=== PATIENT | female | born 1935 | race Caucasian/White ===

== ENCOUNTER 2017-03-22 14:19 | Emergency (ER) | payer OTHER ==
[~2017-03-22] VITALS: Ht 165.1 cm; Wt 77.2 kg
[~2017-03-22 14:19] MED LIST: AMARYL4 MG PO; AMIODARONE HCL200 MG PO; CLONIDINE HCL0.1 MG PO; Cipro PO; ELIQUIS2.5 MG PO; GABAPENTIN300 MG PO; GLUCOPHAGE1000 MG PO; Glucophage PO; LANTUS 3 M100 UNITS1 SC; LOPRESSOR25 MG PO; MAGNESIUM400 M1 PO; NITROSTAT0.4 MG SL; Neurontin PO; PEPCID20 MG PO; PERCOCET 7.51 TABLET PO; PRAVACHOL40 MG PO; Pravachol PO; ZITHROMAX Z-PA250 MG PO
[2017-03-22] MEDS ORDERED: ROBITUSSIN AC,T10 ML PO (16:02)
[2017-03-22] MEDS ORDERED: MEDROL DOSEPAK4 MG PO (16:02)
[2017-03-22 16:39] VITALS: BP 129/67
== END 2017-03-22 16:15 | disposition home or self-care (01) ==
LOC: EME 14:19
DX: J06.9 Acute upper respiratory infection, unspecified (principal); I10 Essential (primary) hypertension; E78.5 Hyperlipidemia, unspecified; E11.9 Type 2 diabetes mellitus without complications; Z79.4 Long term (current) use of insulin
CPT/HCPCS: 99281; 99284; J1100

== ENCOUNTER 2017-03-30 11:44 | Emergency (ER) | payer OTHER ==
[~2017-03-30] VITALS: Ht 165.1 cm; Wt 76.2 kg
[~2017-03-30 11:44] MED LIST changes: +MEDROL DOSEPAK4 MG PO; +ROBITUSSIN AC,T10 ML PO
[2017-03-30 14:53] LABS: EOSINOPHIL (%) 0.9 % (0-5); EOSINOPHIL COUNT 0.1 K/uL (0-0.3); HEMATOCRIT 43.7 % (36.0-46.0); IMMATURE GRANULOCYTE (%) 1.6 % (0.0-0.7); IMMATURE GRANULOCYTE COUNT 0.2 K/uL; INSTRUMENT ABS NEUTROPHIL CT 8.1 K/uL; MCH 30.3 PG (29.0-34.0); MCHC 31.8 G/DL (30.0-36.0); MCV 95.2 FL (83-99); MEAN PLAT.VOLUME 10.5 uM^3 (9.5-12.4); MONOCYTE (%) 6.7 % (3-12); MONOCYTE COUNT 0.8 K/uL (0-0.8); NEUTROPHIL (%) 66.1 % (45-76); NEUTROPHIL COUNT 8.1 K/uL (1.8-6.4); PLATELET COUNT 224 K/uL (156-360); RBC DIS.WIDTH-CV 12.7 % (11.8-14.6); RBC DIS.WIDTH-SD 44.6 % (39-53); RED BLOOD COUNT 4.59 M/uL (3.80-5.20); WHITE BLOOD COUNT 12.2 K/uL (4.1-10.2)
[2017-03-30 15:01] LABS: CHLORIDE 106 mEq/L (99-109); POTASSIUM 4.3 mEq/L (3.7-5.4); SODIUM 138 mEq/L (136-147)
[2017-03-30 15:03] LABS: GLUCOSE 134 mg/dL (70-99)
[2017-03-30 15:04] LABS: ANION GAP 8 MEQ/L (2-14)
[2017-03-30 15:07] LABS: GFR ESTIMATE (CALCULATED) 23 mL/min/
[2017-03-30 15:08] LABS: UREA NITROGEN (BUN) 56 mg/dL (9-23)
[2017-03-30 15:13] LABS: TROP-I INTERPRETATION NEGATIVE; TROPONIN-I < 0.01 ng/mL (0.0-0.30)
[2017-03-30 16:11] LABS: ADD MIUA? YES; BILIRUBIN NEGATIVE; BLOOD SMALL; COLOR YELLOW ((YELLOW)); GLUCOSE (STRIP) 50; KETONES NEGATIVE; LEUKOCYTES LARGE; NITRITE POSITIVE; PROTEIN (STRIP) 30; UROBILINOGEN 0.2 MG/DL (0.2-1.0)
[2017-03-30 16:34] LABS: BACTERIA 3+ /HPF; CASTS NONE SEEN /LPF; CRYSTALS NONE SEEN; EPITHELIAL CELLS 1+ /HPF; MUCUS NONE SEEN /LPF; UCUL ADDED? YES; WHITE BLOOD CELLS TNTC /HPF (0-5)
[2017-03-30] MEDS ORDERED: BACTRIM,SEPT1 TABLET PO (16:54)
[2017-03-30 17:28] VITALS: BP 107/64
== END 2017-03-30 17:29 | disposition home or self-care (01) ==
LOC: EME → EDBD 11:44 → EME 11:44
PROVIDERS: Emergency Medicine
DX: N30.00 Acute cystitis without hematuria (principal); F43.20 Adjustment disorder, unspecified; I12.9 Hypertensive chronic kidney disease with stage 1 through stage 4 chronic kidney disease, or unspecified chronic kidney disease; N18.9 Chronic kidney disease, unspecified; E78.5 Hyperlipidemia, unspecified; R56.9 Unspecified convulsions; Z79.4 Long term (current) use of insulin
CPT/HCPCS: 70450; 71010; 80048; 81003; 84439; 84443; 84484; 85025; 87077; 87086; 87186; 90832; 93005; 99281; 99285; J0696; J7050

== ENCOUNTER 2017-08-16 11:46 | Inpatient (IN) | payer OTHER ==
[~2017-08-16] VITALS: Ht 162.6 cm; Wt 80.6 kg
[~2017-08-16 11:46] MED LIST changes: +BACTRIM,SEPT1 TABLET PO
[2017-08-16 12:25] LABS: HEMATOCRIT 38.2 % (36.0-46.0); MCH 31.1 PG (29.0-34.0); MCHC 33.2 G/DL (30.0-36.0); MCV 93.6 FL (83-99); MEAN PLAT.VOLUME 10.8 uM^3 (9.5-12.4); PLATELET COUNT 226 K/uL (156-360); RBC DIS.WIDTH-CV 12.8 % (11.8-14.6); RBC DIS.WIDTH-SD 43.8 % (39-53); RED BLOOD COUNT 4.08 M/uL (3.80-5.20)
[2017-08-16 12:34] LABS: CHLORIDE 106 mEq/L (99-109); POTASSIUM 3.9 mEq/L (3.7-5.4); SODIUM 142 mEq/L (136-147)
[2017-08-16 12:37] LABS: GLUCOSE 130 mg/dL (70-99)
[2017-08-16 12:38] LABS: ANION GAP 13 MEQ/L (2-14)
[2017-08-16 12:39] LABS: TOTAL BILIRUBIN 0.4 mg/dL (0.0-1.0)
[2017-08-16 12:40] LABS: ALKALINE PHOSPHATASE 41 IU/L (3-129); GFR ESTIMATE (CALCULATED) 25 mL/min/
[2017-08-16 12:41] LABS: UREA NITROGEN (BUN) 35 mg/dL (9-23)
[2017-08-16 12:47] LABS: TROP-I INTERPRETATION NEGATIVE; TROPONIN-I < 0.01 ng/mL (0.0-0.30)
[2017-08-16] MEDS ORDERED: AMIODARONE HCL200 MG PO (15:10)
[2017-08-16] MEDS ORDERED: LANTUS 3 M100 UNITS1 SC (15:13)
[2017-08-16] MEDS ORDERED: AMARYL4 MG PO (15:14)
[2017-08-16] MEDS ORDERED: LOSARTAN POTAS100 MG PO (15:14)
[2017-08-16] MEDS ORDERED: TRULICITY0.75 MG/0. SC (15:15)
[2017-08-16] MEDS ORDERED: BENZONATATE100 MG PO (15:15)
[2017-08-16] MEDS ORDERED: PREDNISONE20 MG PO (15:16)
[2017-08-16] MEDS ORDERED: CALCITRIOL0.25 MCG PO (15:17)
[2017-08-16] MEDS ORDERED: LEVOTHYROXINE50 MCG PO (15:17)
[2017-08-16] MEDS ORDERED: ATARAX,VISTARIL25 MG PO (15:17)
[2017-08-16] MEDS ORDERED: SILVER SULFADIA50 GM TP (15:18)
[2017-08-16] MEDS ORDERED: CEFUROXIME500 MG PO (15:18)
[2017-08-16] MEDS ORDERED: VITAMIN D-32000 UNI2 PO (15:20)
[2017-08-16 18:24] VITALS: BP 199/91
[2017-08-16 19:18] LABS: TROP-I INTERPRETATION NEGATIVE; TROPONIN-I < 0.01 ng/mL (0.0-0.30)
[2017-08-16 19:30] VITALS: BP 179/80
[2017-08-16 21:39] LABS: POINT-OF-CARE METER ID UU14162513
[2017-08-16 23:20] VITALS: BP 187/74
[2017-08-17] VITALS (8 sets, daily range): BP systolic 138–194; BP diastolic 67–94
[2017-08-17 00:53] LABS: TROP-I INTERPRETATION NEGATIVE; TROPONIN-I 0.01 ng/mL (0.0-0.30)
[2017-08-17 08:13] LABS: POINT-OF-CARE METER ID UU14162513
[2017-08-17 12:04] LABS: POINT-OF-CARE METER ID UU13113831
[2017-08-17 17:26] LABS: POINT-OF-CARE METER ID UU13113831
[2017-08-17 21:22] LABS: POINT-OF-CARE METER ID UU13113831
[2017-08-18 00:30] VITALS: BP 192/81
[2017-08-18 08:34] LABS: POINT-OF-CARE METER ID UU14162513
[2017-08-18 11:33] VITALS: BP 191/80
[2017-08-18 12:30] LABS: POINT-OF-CARE METER ID UU14162513
[2017-08-18 15:54] VITALS: BP 143/63
[2017-08-18 18:06] LABS: POINT-OF-CARE METER ID UU14162513
[2017-08-18 19:30] VITALS: BP 174/72
[2017-08-18 21:30] LABS: POINT-OF-CARE METER ID UU13113700
[2017-08-18 23:42] VITALS: BP 110/60
[2017-08-19 04:26] VITALS: BP 166/73
[2017-08-19 06:52] VITALS: BP 128/64
[2017-08-19 08:25] LABS: POINT-OF-CARE METER ID UU13113700
[2017-08-19 09:52] LABS: HEMATOCRIT 37.5 % (36.0-46.0); MCH 30.3 PG (29.0-34.0); MCHC 31.5 G/DL (30.0-36.0); MCV 96.2 FL (83-99); MEAN PLAT.VOLUME 10.5 uM^3 (9.5-12.4); PLATELET COUNT 177 K/uL (156-360); RBC DIS.WIDTH-CV 13.1 % (11.8-14.6); RBC DIS.WIDTH-SD 46.4 % (39-53); WHITE BLOOD COUNT 8.8 K/uL (4.1-10.2)
[2017-08-19 10:29] LABS: ANION GAP 9 MEQ/L (2-14); CHLORIDE 109 MEQ/L (99-109); GFR ESTIMATE (CALCULATED) 29 mL/min/; GLUCOSE 162 mg/dL (70-99); POTASSIUM 4.4 MEQ/L (3.7-5.4); SAMPLE HEMOLYSIS CHECK 0; SAMPLE ICTERIC CHECK 0; SAMPLE LIPEMIA CHECK 0; SODIUM 141 MEQ/L (136-147); UREA NITROGEN (BUN) 29 mg/dL (9-23)
[2017-08-19 10:33] VITALS: BP 147/63
[2017-08-19] MEDS ORDERED: AZITHROMYCIN500 M1 PO (13:41)
[2017-08-19 13:44] LABS: POINT-OF-CARE METER ID UU14162513
[2017-08-19] MEDS ORDERED: PROTONIX40 MG PO (13:59)
== END 2017-08-19 15:53 | disposition home health service (06) | DRG 312 ==
LOC: EME 11:46 → 5WEST 13:25 → EDOF 13:25 → ENRESERV 13:41 → 5WEST 18:09
PROVIDERS: Internal Medicine; Nurse Practitioner Adult Health; Physician Assistant Medical
DX: I95.1 Orthostatic hypotension (principal); I13.0 Hypertensive heart and chronic kidney disease with heart failure and stage 1 through stage 4 chronic kidney disease, or unspecified chronic kidney disease; I50.9 Heart failure, unspecified; E11.22 Type 2 diabetes mellitus with diabetic chronic kidney disease; N18.3 Chronic kidney disease, stage 3 (moderate); E78.5 Hyperlipidemia, unspecified; I25.10 Atherosclerotic heart disease of native coronary artery without angina pectoris; I48.91 Unspecified atrial fibrillation; F32.9 Major depressive disorder, single episode, unspecified; Z86.73 Personal history of transient ischemic attack (TIA), and cerebral infarction without residual deficits; Z79.4 Long term (current) use of insulin
CPT/HCPCS: 70450; 71010; 74176; 80048; 80053; 82948; 84484; 85027; 92610 GN; 93005; 93306; 93880; 97530 GO; 97530 GP; 99281; 99285; G0378; G8978 GP CK; G8979 GP CI; G8987 GO CM; G8988 CI; J0360; J1815; J2405; J7030

== ENCOUNTER 2017-10-31 14:46 | Emergency (ER) | payer OTHER ==
[~2017-10-31] VITALS: Ht 160 cm; Wt 72.0 kg
[~2017-10-31 14:46] MED LIST changes: +ATARAX,VISTARIL25 MG PO; +AZITHROMYCIN500 M1 PO; +BENZONATATE100 MG PO; +CALCITRIOL0.25 MCG PO; +CEFUROXIME500 MG PO; +LEVOTHYROXINE50 MCG PO; +LOSARTAN POTAS100 MG PO; +PREDNISONE20 MG PO; +PROTONIX40 MG PO; +SILVER SULFADIA50 GM TP; +TRULICITY0.75 MG/0. SC; +VITAMIN D-32000 UNI2 PO
[2017-10-31 15:42] LABS: HEMATOCRIT 36.8 % (36.0-46.0); HEMOGLOBIN 11.9 G/DL (11.9-15.5); MCH 31.5 PG (29.0-34.0); MCHC 32.3 G/DL (30.0-36.0); MCV 97.4 FL (83-99); PLATELET COUNT 159 K/uL (156-360); RBC DIS.WIDTH-SD 46.6 % (39-53); RED BLOOD COUNT 3.78 M/uL (3.80-5.20); WHITE BLOOD COUNT 6.2 K/uL (4.1-10.2)
[2017-10-31 15:57] VITALS: BP 175/68
[2017-10-31 16:05] LABS: ALBUMIN 3.7 G/DL (3.2-4.8); CHLORIDE 109 MEQ/L (99-109); POTASSIUM 4.2 MEQ/L (3.7-5.4); SODIUM 139 MEQ/L (136-147); TOTAL BILIRUBIN 0.5 MG/DL (0.0-1.0)
[2017-10-31 16:22] LABS: ALKALINE PHOSPHATASE 33 IU/L (3-129); ALT (GPT) 14 IU/L (3-49); AST (GOT) 30 IU/L (2-34); CREATININE 1.9 MG/DL (0.6-1.3); GFR ESTIMATE (CALCULATED) 27 mL/min/; GLUCOSE 67 mg/dL (70-99); LIPASE < 3.0 U/L (1.0-51.0); TOTAL PROTEIN 6.5 G/DL (6.4-8.3); UREA NITROGEN (BUN) 24 mg/dL (9-23)
[2017-10-31 18:56] LABS: APPEARANCE CLEAR ((CLEAR)); BILIRUBIN NEGATIVE; BLOOD NEGATIVE; COLOR YELLOW ((YELLOW)); GLUCOSE (STRIP) 50; KETONES NEGATIVE; LEUKOCYTES NEGATIVE; NITRITE POSITIVE; PROTEIN (STRIP) 30; SPECIFIC GRAVITY 1.019 (1.000-1.030); UROBILINOGEN 0.2 MG/DL (0.2-1.0)
[2017-10-31 19:01] LABS: BACTERIA RARE /HPF; EPITHELIAL CELLS RARE /HPF; MUCUS TRACE /LPF; RED BLOOD CELLS 0-5 /HPF (0-5); UCUL ADDED? NO; WHITE BLOOD CELLS 0-5 /HPF (0-5)
[2017-10-31] MEDS ORDERED: KEFLEX500 MG PO (20:15)
== END 2017-10-31 20:54 | disposition home or self-care (01) ==
LOC: EME 14:46
PROVIDERS: Physician Assistant
DX: N39.0 Urinary tract infection, site not specified (principal); S20.211A Contusion of right front wall of thorax, initial encounter; S40.011A Contusion of right shoulder, initial encounter; S70.01XA Contusion of right hip, initial encounter; W01.198A Fall on same level from slipping, tripping and stumbling with subsequent striking against other object, initial encounter; R10.9 Unspecified abdominal pain; R07.9 Chest pain, unspecified; I50.9 Heart failure, unspecified; I11.0 Hypertensive heart disease with heart failure; F32.9 Major depressive disorder, single episode, unspecified; E78.5 Hyperlipidemia, unspecified; E11.9 Type 2 diabetes mellitus without complications; R56.9 Unspecified convulsions; Z79.4 Long term (current) use of insulin; Z79.891 Long term (current) use of opiate analgesic; Z79.84 Long term (current) use of oral hypoglycemic drugs
CPT/HCPCS: 70450; 71045; 73030; 73502; 74176; 80053; 81003; 83690; 85027; 93005; 99281; 99285; J7040

== ENCOUNTER 2017-11-02 12:31 | Inpatient (IN) | payer OTHER ==
[~2017-11-02] VITALS: Ht 162.6 cm; Wt 76.7 kg
[~2017-11-02 12:31] MED LIST changes: +KEFLEX500 MG PO
[2017-11-02 13:38] LABS: BASOPHIL (%) 0.3 % (0-1); EOSINOPHIL (%) 0 % (0-5); HEMATOCRIT 41.2 % (36.0-46.0); HEMOGLOBIN 13.4 G/DL (11.9-15.5); IMMATURE GRANULOCYTE (%) 0.2 % (0.0-0.7); LYMPHOCYTE (%) 16.5 % (15-42); LYMPHOCYTE COUNT 1.4 K/uL (1.0-2.8); MCH 31.3 PG (29.0-34.0); MCHC 32.5 G/DL (30.0-36.0); MCV 96.3 FL (83-99); MONOCYTE (%) 9.2 % (3-12); MONOCYTE COUNT 0.8 K/uL (0-0.8); NEUTROPHIL (%) 73.8 % (45-76); NEUTROPHIL COUNT 6.4 K/uL (1.8-6.4); PLATELET COUNT 170 K/uL (156-360); RBC DIS.WIDTH-CV 13.1 % (11.8-14.6); RBC DIS.WIDTH-SD 46.7 % (39-53); RED BLOOD COUNT 4.28 M/uL (3.80-5.20); WHITE BLOOD COUNT 8.7 K/uL (4.1-10.2)
[2017-11-02 13:47] LABS: CHLORIDE 109 mEq/L (99-109); POTASSIUM 4.3 mEq/L (3.7-5.4); SODIUM 142 mEq/L (136-147)
[2017-11-02 13:48] LABS: GLUCOSE 61 mg/dL (70-99)
[2017-11-02 13:52] LABS: GFR ESTIMATE (CALCULATED) 25 mL/min/
[2017-11-02 13:53] LABS: UREA NITROGEN (BUN) 21 mg/dL (9-23)
[2017-11-02 13:58] LABS: TROP-I INTERPRETATION NEGATIVE; TROPONIN-I 0.02 ng/mL (0.0-0.30)
[2017-11-02 14:26] LABS: INTER. NORMALIZED RATIO 1.1
[2017-11-02] MEDS ORDERED: GLIMEPIRIDE4 MG PO (17:25)
[2017-11-02] MEDS ORDERED: PRAVASTATIN SOD40 MG PO (17:26)
[2017-11-02] MEDS ORDERED: ENDOCET 5-3251 EACH PO (17:27)
[2017-11-02] MEDS ORDERED: LEVEMIR FL100 UNIT/1 SC (17:28)
[2017-11-02] MEDS ORDERED: PENTOXIFYLLINE400 MG PO (17:28)
[2017-11-02 20:21] VITALS: BP 160/70
[2017-11-02 23:48] VITALS: BP 180/83
[2017-11-03] VITALS (7 sets, daily range): BP systolic 125–180; BP diastolic 60–117
[2017-11-03 06:07] LABS: BASOPHIL (%) 0.2 % (0-1); EOSINOPHIL (%) 0 % (0-5); HEMATOCRIT 35.6 % (36.0-46.0); HEMOGLOBIN 11.4 G/DL (11.9-15.5); IMMATURE GRANULOCYTE (%) 0.3 % (0.0-0.7); LYMPHOCYTE (%) 8.9 % (15-42); LYMPHOCYTE COUNT 0.6 K/uL (1.0-2.8); MCH 31.1 PG (29.0-34.0); MONOCYTE (%) 1.6 % (3-12); MONOCYTE COUNT 0.1 K/uL (0-0.8); NEUTROPHIL COUNT 5.6 K/uL (1.8-6.4); PLATELET COUNT 149 K/uL (156-360); RBC DIS.WIDTH-CV 13.1 % (11.8-14.6); RBC DIS.WIDTH-SD 46.7 % (39-53); RED BLOOD COUNT 3.67 M/uL (3.80-5.20); WHITE BLOOD COUNT 6.3 K/uL (4.1-10.2)
[2017-11-03 06:37] LABS: CHLORIDE 101 MEQ/L (99-109); CREATININE 1.8 MG/DL (0.6-1.3); GFR ESTIMATE (CALCULATED) 29 mL/min/; POTASSIUM 5.1 MEQ/L (3.7-5.4); UREA NITROGEN (BUN) 24 mg/dL (9-23)
[2017-11-03 06:38] LABS: GLUCOSE 326 mg/dL (70-99); SODIUM 134 MEQ/L (136-147)
[2017-11-04] VITALS (7 sets, daily range): BP systolic 135–160; BP diastolic 66–92
[2017-11-05] VITALS (7 sets, daily range): BP systolic 136–152; BP diastolic 60–72
[2017-11-05 06:45] LABS: HEMATOCRIT 35.2 % (36.0-46.0); HEMOGLOBIN 11.7 G/DL (11.9-15.5); MCH 31.5 PG (29.0-34.0); MCHC 33.2 G/DL (30.0-36.0); MCV 94.9 FL (83-99); RBC DIS.WIDTH-CV 13.2 % (11.8-14.6); RBC DIS.WIDTH-SD 45.6 % (39-53); RED BLOOD COUNT 3.71 M/uL (3.80-5.20); WHITE BLOOD COUNT 11.7 K/uL (4.1-10.2)
[2017-11-05 06:57] LABS: PLATELET COUNT 196 K/uL (156-360)
[2017-11-05 07:33] LABS: CHLORIDE 102 MEQ/L (99-109); CREATININE 2.4 MG/DL (0.6-1.3); GFR ESTIMATE (CALCULATED) 21 mL/min/; GLUCOSE 182 mg/dL (70-99); POTASSIUM 4.5 MEQ/L (3.7-5.4); SODIUM 139 MEQ/L (136-147); UREA NITROGEN (BUN) 51 mg/dL (9-23)
[2017-11-06] VITALS: BP 142/69
[2017-11-06 04:04] VITALS: BP 142/71
[2017-11-06 06:36] LABS: HEMATOCRIT 35.3 % (36.0-46.0); HEMOGLOBIN 11.5 G/DL (11.9-15.5); MCH 31.1 PG (29.0-34.0); MCHC 32.6 G/DL (30.0-36.0); MCV 95.4 FL (83-99); PLATELET COUNT 191 K/uL (156-360); RBC DIS.WIDTH-SD 45.1 % (39-53); WHITE BLOOD COUNT 9.3 K/uL (4.1-10.2)
[2017-11-06 07:29] VITALS: BP 125/59
[2017-11-06 11:08] LABS: HEMOGLOBIN A1c (GLYCOHEMOGLOB) 8.6 % (Below 5.7)
[2017-11-06 16:10] VITALS: BP 130/62
[2017-11-06 20:04] VITALS: BP 130/69
[2017-11-07] VITALS: BP 126/68
[2017-11-07 04:00] VITALS: BP 156/76
[2017-11-07 06:25] LABS: CHLORIDE 105 MEQ/L (99-109); CREATININE 2.2 MG/DL (0.6-1.3); GFR ESTIMATE (CALCULATED) 23 mL/min/; GLUCOSE 147 mg/dL (70-99); POTASSIUM 4.1 MEQ/L (3.7-5.4); SODIUM 136 MEQ/L (136-147); UREA NITROGEN (BUN) 47 mg/dL (9-23)
[2017-11-07 07:49] VITALS: BP 127/72
[2017-11-07 11:24] VITALS: BP 135/62
[2017-11-07 15:21] VITALS: BP 121/60
[2017-11-07 23:56] VITALS: BP 174/74
[2017-11-08 07:36] VITALS: BP 147/67
[2017-11-08 16:16] VITALS: BP 140/64
[2017-11-08 23:24] VITALS: BP 132/63
[2017-11-09 07:05] LABS: HEMATOCRIT 34.5 % (36.0-46.0); HEMOGLOBIN 11.1 G/DL (11.9-15.5); MCH 30.5 PG (29.0-34.0); MCHC 32.2 G/DL (30.0-36.0); MCV 94.8 FL (83-99); PLATELET COUNT 233 K/uL (156-360); RBC DIS.WIDTH-SD 45.1 % (39-53); RED BLOOD COUNT 3.64 M/uL (3.80-5.20); WHITE BLOOD COUNT 13.1 K/uL (4.1-10.2)
[2017-11-09 07:37] LABS: CHLORIDE 104 MEQ/L (99-109); CREATININE 2.3 MG/DL (0.6-1.3); GFR ESTIMATE (CALCULATED) 22 mL/min/; POTASSIUM 4.6 MEQ/L (3.7-5.4); SODIUM 134 MEQ/L (136-147); UREA NITROGEN (BUN) 58 mg/dL (9-23)
[2017-11-09 07:46] VITALS: BP 122/65
[2017-11-09 07:49] LABS: GLUCOSE 232 mg/dL (70-99)
[2017-11-09 12:56] VITALS: BP 128/65
[2017-11-09 16:14] VITALS: BP 117/55
[2017-11-09 23:54] VITALS: BP 109/61
[2017-11-10] VITALS (8 sets, daily range): BP systolic 89–157; BP diastolic 50–69
[2017-11-11 04:10] VITALS: BP 117/69
[2017-11-11 07:37] LABS: HEMATOCRIT 36.4 % (36.0-46.0); HEMOGLOBIN 11.8 G/DL (11.9-15.5); MCH 31.8 PG (29.0-34.0); MCHC 32.4 G/DL (30.0-36.0); MCV 98.1 FL (83-99); PLATELET COUNT 248 K/uL (156-360); RBC DIS.WIDTH-CV 13.2 % (11.8-14.6); RBC DIS.WIDTH-SD 47.1 % (39-53); RED BLOOD COUNT 3.71 M/uL (3.80-5.20); WHITE BLOOD COUNT 13.7 K/uL (4.1-10.2)
[2017-11-11 08:00] VITALS: BP 150/69
[2017-11-11 08:11] LABS: CHLORIDE 105 MEQ/L (99-109); CREATININE 2.1 MG/DL (0.6-1.3); GFR ESTIMATE (CALCULATED) 24 mL/min/; POTASSIUM 4.8 MEQ/L (3.7-5.4); SODIUM 133 MEQ/L (136-147); UREA NITROGEN (BUN) 49 mg/dL (9-23)
[2017-11-11 08:13] LABS: GLUCOSE 109 mg/dL (70-99)
[2017-11-11 11:26] VITALS: BP 151/67
[2017-11-11] MEDS ORDERED: LOSARTAN POTASS50 MG PO (11:45)
[2017-11-11] MEDS ORDERED: AMOX TR-K CLV1 EAC4 PO (11:45)
[2017-11-11] MEDS ORDERED: DUONEB 2.5-0.5 M3 ML AEROSOL (11:45)
[2017-11-11] MEDS ORDERED: MUCINEX600 MG PO (11:46)
[2017-11-11] MEDS ORDERED: PREDNISONE10 MG PO (11:47)
[2017-11-11] MEDS ORDERED: LEVEMIR100 UNIT/2 SC ×2 (11:48)
[2017-11-11] MEDS ORDERED: NOVOLOG 10100 UNITS/ SC (11:48)
[2017-11-11] MEDS ORDERED: Salonpas 4% Patch TD (11:49)
[2017-11-11 17:19] VITALS: BP 115/58
== END 2017-11-11 18:42 | DRG 193 ==
LOC: EME 12:31 → EDOF 16:03 → 5SOUTH 16:03 → ENRESERV 16:17 → 5SOUTH 19:50
PROVIDERS: Emergency Medicine; Internal Medicine; Physician Assistant Medical
DX: J18.9 Pneumonia, unspecified organism (principal); J96.01 Acute respiratory failure with hypoxia; J98.11 Atelectasis; J21.9 Acute bronchiolitis, unspecified; T17.890A Other foreign object in other parts of respiratory tract causing asphyxiation, initial encounter; E11.65 Type 2 diabetes mellitus with hyperglycemia; T38.0X5A Adverse effect of glucocorticoids and synthetic analogues, initial encounter; I13.0 Hypertensive heart and chronic kidney disease with heart failure and stage 1 through stage 4 chronic kidney disease, or unspecified chronic kidney disease; E11.22 Type 2 diabetes mellitus with diabetic chronic kidney disease; N18.3 Chronic kidney disease, stage 3 (moderate); I50.9 Heart failure, unspecified; I48.0 Paroxysmal atrial fibrillation; I71.2 Thoracic aortic aneurysm, without rupture; I95.1 Orthostatic hypotension; M19.011 Primary osteoarthritis, right shoulder; M25.551 Pain in right hip; I44.0 Atrioventricular block, first degree; I44.4 Left anterior fascicular block; E78.5 Hyperlipidemia, unspecified; R42 Dizziness and giddiness; Z91.81 History of falling; E66.9 Obesity, unspecified; F32.9 Major depressive disorder, single episode, unspecified; Z68.29 Body mass index [BMI] 29.0-29.9, adult; Z79.4 Long term (current) use of insulin; Z86.73 Personal history of transient ischemic attack (TIA), and cerebral infarction without residual deficits
CPT/HCPCS: 70450; 71045; 71046; 71250; 73030; 73502; 74176; 80048; 80053; 81003; 82565; 82948; 83036; 83690; 83880; 84484; 85025; 85027; 85610; 85730; 87040; 87070; 87205; 87449; 87502; 87641; 93005; 93306; 94010; 94640; 94640 76; 94667; 94668; 94760; 94799; 97530 GO; 97530 GP; 99202; 99281; 99285; A6214; J0360; J0456; J0692; J1644; J1815; J1940; J2920; J2930; J3370; J7030; J7040; J7512

== ENCOUNTER 2018-01-25 13:03 | Inpatient (IN) | payer OTHER ==
[~2018-01-25] VITALS: Ht 162.6 cm; Wt 84.7 kg
[~2018-01-25 13:03] MED LIST changes: +AMOX TR-K CLV1 EAC4 PO; +DUONEB 2.5-0.5 M3 ML AEROSOL; +ENDOCET 5-3251 EACH PO; +GLIMEPIRIDE4 MG PO; +LEVEMIR FL100 UNIT/1 SC; +LEVEMIR100 UNIT/2 SC; +LOSARTAN POTASS50 MG PO; +MUCINEX600 MG PO; +NOVOLOG 10100 UNITS/ SC; +PENTOXIFYLLINE400 MG PO; +PRAVASTATIN SOD40 MG PO; +PREDNISONE10 MG PO; +Salonpas 4% Patch TD
[2018-01-25 14:19] LABS: BASE EXCESS -4.1 mEq/L (-3 to +3); BICARBONATE 20.9 mEq/L (22-26); CARBOXY HGB 1.2 % (0-5); COMMENTS - BLOOD GASES NAC+; DEVICE CANNULA; METHEMOGLOBIN 0.8 % (0-1.5); O2 FLOW 2 L/MIN; PCO2 37 mm Hg (35-45); PO2 83 mm Hg (80-100); SITE RR; pH 7.36 (7.35-7.45)
[2018-01-25 15:19] LABS: HEMOGLOBIN 11.2 G/DL (11.9-15.5); MCH 31.3 PG (29.0-34.0); MCV 97.8 FL (83-99); PLATELET COUNT 202 K/uL (156-360); RBC DIS.WIDTH-CV 13.2 % (11.8-14.6); RBC DIS.WIDTH-SD 47.6 % (39-53); RED BLOOD COUNT 3.58 M/uL (3.80-5.20); WHITE BLOOD COUNT 23.8 K/uL (4.1-10.2)
[2018-01-25 15:29] LABS: ALBUMIN 3.4 g/dL (3.2-4.8); CHLORIDE 108 mEq/L (99-109); POTASSIUM 4.8 mEq/L (3.7-5.4); SODIUM 139 mEq/L (136-147)
[2018-01-25 15:32] LABS: GLUCOSE 181 mg/dL (70-99); TOTAL PROTEIN 5.7 g/dL (6.4-8.3)
[2018-01-25 15:34] LABS: TOTAL BILIRUBIN 0.4 mg/dL (0.0-1.0)
[2018-01-25 15:35] LABS: ALKALINE PHOSPHATASE 31 IU/L (3-129); CREATININE 2.1 mg/dL (0.6-1.3); GFR ESTIMATE (CALCULATED) 24 mL/min/
[2018-01-25 15:36] LABS: UREA NITROGEN (BUN) 33 mg/dL (9-23)
[2018-01-25 15:37] LABS: AST (GOT) 23 IU/L (2-34)
[2018-01-25 15:38] LABS: ALT (GPT) 16 IU/L (3-49)
[2018-01-25 16:01] LABS: APPEARANCE CLEAR ((CLEAR)); BILIRUBIN NEGATIVE; BLOOD NEGATIVE; COLOR YELLOW ((YELLOW)); GLUCOSE (STRIP) 150; KETONES NEGATIVE; LEUKOCYTES NEGATIVE; NITRITE NEGATIVE; PROTEIN (STRIP) NEGATIVE; SPECIFIC GRAVITY 1.017 (1.000-1.030); UCUL ADDED? NO; UROBILINOGEN 0.2 MG/DL (0.2-1.0)
[2018-01-25 17:12] LABS: INTER. NORMALIZED RATIO 1.2
[2018-01-25 17:14] LABS: PTT 26.4 SEC (25-37)
[2018-01-25] MEDS ORDERED: KLONOPIN0.5 M1 PO (18:08)
[2018-01-25] MEDS ORDERED: MEDROL DOSEPAK4 MG PO (18:12)
[2018-01-25] MEDS ORDERED: MUCINEX600 MG PO (18:15)
[2018-01-25] MEDS ORDERED: MUCINEX COLD-F177 ML PO (18:18)
[2018-01-25] MEDS ORDERED: PROTONIX40 MG PO (18:23)
[2018-01-25] MEDS ORDERED: LEVEMIR100 UNIT/2 SC (18:27)
[2018-01-25 21:17] VITALS: BP 152/68
[2018-01-25 21:30] VITALS: BP 152/68
[2018-01-25 23:26] VITALS: BP 129/58
[2018-01-26 03:59] VITALS: BP 128/58
[2018-01-26 05:50] LABS: HEMATOCRIT 32.1 % (36.0-46.0); HEMOGLOBIN 10.1 G/DL (11.9-15.5); MCH 30.6 PG (29.0-34.0); MCHC 31.5 G/DL (30.0-36.0); MCV 97.3 FL (83-99); PLATELET COUNT 173 K/uL (156-360); RBC DIS.WIDTH-CV 13.2 % (11.8-14.6); RBC DIS.WIDTH-SD 47.5 % (39-53); WHITE BLOOD COUNT 21.1 K/uL (4.1-10.2)
[2018-01-26 06:18] LABS: CHLORIDE 109 MEQ/L (99-109); CREATININE 1.8 MG/DL (0.6-1.3); GFR ESTIMATE (CALCULATED) 29 mL/min/; GLUCOSE 55 mg/dL (70-99); POTASSIUM 4.1 MEQ/L (3.7-5.4); SODIUM 139 MEQ/L (136-147); UREA NITROGEN (BUN) 31 mg/dL (9-23)
[2018-01-26 08:30] VITALS: BP 151/70
[2018-01-26 11:15] VITALS: BP 145/62
[2018-01-26 16:06] VITALS: BP 139/60
[2018-01-26 23:25] VITALS: BP 145/67
[2018-01-27 04:02] VITALS: BP 150/67
[2018-01-27 06:09] LABS: HEMATOCRIT 31.5 % (36.0-46.0); MCH 30.4 PG (29.0-34.0); MCHC 31.7 G/DL (30.0-36.0); MCV 95.7 FL (83-99); PLATELET COUNT 177 K/uL (156-360); RBC DIS.WIDTH-CV 13.2 % (11.8-14.6); RBC DIS.WIDTH-SD 46.5 % (39-53); RED BLOOD COUNT 3.29 M/uL (3.80-5.20); WHITE BLOOD COUNT 12.7 K/uL (4.1-10.2)
[2018-01-27 06:32] LABS: CHLORIDE 112 MEQ/L (99-109); CREATININE 1.6 MG/DL (0.6-1.3); GFR ESTIMATE (CALCULATED) 33 mL/min/; POTASSIUM 4.2 MEQ/L (3.7-5.4); SODIUM 142 MEQ/L (136-147); UREA NITROGEN (BUN) 23 mg/dL (9-23)
[2018-01-27 06:33] LABS: GLUCOSE 101 mg/dL (70-99)
[2018-01-27 07:57] VITALS: BP 179/79
[2018-01-27 12:06] VITALS: BP 129/60
[2018-01-27 15:44] VITALS: BP 143/61
[2018-01-27 19:42] VITALS: BP 143/67
[2018-01-27 23:48] VITALS: BP 178/77
[2018-01-28 05:16] VITALS: BP 148/72
[2018-01-28 05:47] LABS: HEMATOCRIT 33.6 % (36.0-46.0); HEMOGLOBIN 10.9 G/DL (11.9-15.5); MCHC 32.4 G/DL (30.0-36.0); MCV 95.5 FL (83-99); PLATELET COUNT 167 K/uL (156-360); RBC DIS.WIDTH-CV 13.2 % (11.8-14.6); RBC DIS.WIDTH-SD 46.2 % (39-53); RED BLOOD COUNT 3.52 M/uL (3.80-5.20); WHITE BLOOD COUNT 10.1 K/uL (4.1-10.2)
[2018-01-28 06:26] LABS: CHLORIDE 110 MEQ/L (99-109); CREATININE 1.7 MG/DL (0.6-1.3); GFR ESTIMATE (CALCULATED) 31 mL/min/; POTASSIUM 4.2 MEQ/L (3.7-5.4); SODIUM 140 MEQ/L (136-147); UREA NITROGEN (BUN) 18 mg/dL (9-23)
[2018-01-28 06:29] LABS: GLUCOSE 159 mg/dL (70-99)
[2018-01-28 07:41] VITALS: BP 140/70
[2018-01-28 12:12] VITALS: BP 145/68
[2018-01-28 15:36] VITALS: BP 92/57
[2018-01-28 19:29] VITALS: BP 114/56
[2018-01-28 23:44] VITALS: BP 160/65
[2018-01-29 03:39] VITALS: BP 113/61
[2018-01-29 05:36] LABS: HEMOGLOBIN 10.7 G/DL (11.9-15.5); MCH 30.1 PG (29.0-34.0); MCHC 31.5 G/DL (30.0-36.0); MCV 95.8 FL (83-99); PLATELET COUNT 185 K/uL (156-360); RBC DIS.WIDTH-CV 13.2 % (11.8-14.6); RBC DIS.WIDTH-SD 46.1 % (39-53); RED BLOOD COUNT 3.55 M/uL (3.80-5.20); WHITE BLOOD COUNT 9.7 K/uL (4.1-10.2)
[2018-01-29 05:58] LABS: CHLORIDE 111 MEQ/L (99-109); CREATININE 1.8 MG/DL (0.6-1.3); GFR ESTIMATE (CALCULATED) 29 mL/min/; GLUCOSE 133 mg/dL (70-99); POTASSIUM 4.2 MEQ/L (3.7-5.4); SODIUM 142 MEQ/L (136-147); UREA NITROGEN (BUN) 19 mg/dL (9-23)
[2018-01-29 07:54] VITALS: BP 125/61
[2018-01-29 12:32] VITALS: BP 121/58
[2018-01-29 15:53] VITALS: BP 106/59
[2018-01-29 19:36] VITALS: BP 111/59
[2018-01-29 23:23] VITALS: BP 117/59
[2018-01-30 03:23] VITALS: BP 124/60
[2018-01-30 07:54] VITALS: BP 131/60
[2018-01-30 11:28] VITALS: BP 128/58
[2018-01-30 16:03] VITALS: BP 116/60
[2018-01-30 20:26] VITALS: BP 112/55
[2018-01-30 23:35] VITALS: BP 115/56
[2018-01-31 05:20] VITALS: BP 120/60
[2018-01-31 06:12] LABS: HEMATOCRIT 32.7 % (36.0-46.0); HEMOGLOBIN 10.5 G/DL (11.9-15.5); MCH 31.3 PG (29.0-34.0); MCHC 32.1 G/DL (30.0-36.0); MCV 97.6 FL (83-99); PLATELET COUNT 167 K/uL (156-360); RBC DIS.WIDTH-CV 13.2 % (11.8-14.6); RED BLOOD COUNT 3.35 M/uL (3.80-5.20); WHITE BLOOD COUNT 8.2 K/uL (4.1-10.2)
[2018-01-31 06:39] LABS: CHLORIDE 109 MEQ/L (99-109); GFR ESTIMATE (CALCULATED) 22 mL/min/; POTASSIUM 4.2 MEQ/L (3.7-5.4); SODIUM 140 MEQ/L (136-147); UREA NITROGEN (BUN) 28 mg/dL (9-23)
[2018-01-31 06:45] LABS: CREATININE 2.3 MG/DL (0.6-1.3); GLUCOSE 205 mg/dL (70-99)
[2018-01-31 07:37] VITALS: BP 119/56
[2018-01-31 11:37] VITALS: BP 122/54
[2018-01-31 13:31] LABS: CHLORIDE 109 MEQ/L (99-109); CREATININE 2.4 MG/DL (0.6-1.3); GFR ESTIMATE (CALCULATED) 21 mL/min/; GLUCOSE 174 mg/dL (70-99); POTASSIUM 4.2 MEQ/L (3.7-5.4); SODIUM 141 MEQ/L (136-147); UREA NITROGEN (BUN) 29 mg/dL (9-23)
[2018-01-31 16:28] VITALS: BP 128/62
[2018-01-31 19:28] VITALS: BP 131/58
[2018-01-31 23:22] VITALS: BP 128/56
[2018-02-01 03:51] VITALS: BP 127/64
[2018-02-01 07:03] LABS: CHLORIDE 109 MEQ/L (99-109); CREATININE 2.7 MG/DL (0.6-1.3); GFR ESTIMATE (CALCULATED) 18 mL/min/; GLUCOSE 254 mg/dL (70-99); POTASSIUM 4.3 MEQ/L (3.7-5.4); SODIUM 140 MEQ/L (136-147); UREA NITROGEN (BUN) 29 mg/dL (9-23)
[2018-02-01 07:37] VITALS: BP 120/56
[2018-02-01 12:11] VITALS: BP 163/65
[2018-02-01 16:58] VITALS: BP 156/70
[2018-02-01 18:44] LABS: UR CREATININE CONCENTRATION 72.3 MG/DL
[2018-02-01 19:13] VITALS: BP 146/67
[2018-02-01 22:58] VITALS: BP 127/58
[2018-02-02 03:43] VITALS: BP 143/63
[2018-02-02 06:44] LABS: BASOPHIL (%) 0.2 % (0-1); EOSINOPHIL (%) 0 % (0-5); HEMATOCRIT 31.8 % (36.0-46.0); HEMOGLOBIN 10.1 G/DL (11.9-15.5); LYMPHOCYTE (%) 7.5 % (15-42); MCH 30.6 PG (29.0-34.0); MCHC 31.8 G/DL (30.0-36.0); MCV 96.4 FL (83-99); MONOCYTE (%) 1.7 % (3-12); MONOCYTE COUNT 0.2 K/uL (0-0.8); NEUTROPHIL (%) 88.6 % (45-76); NEUTROPHIL COUNT 11.4 K/uL (1.8-6.4); PLATELET COUNT 167 K/uL (156-360); RBC DIS.WIDTH-CV 13.1 % (11.8-14.6); RBC DIS.WIDTH-SD 46.6 % (39-53); WHITE BLOOD COUNT 12.9 K/uL (4.1-10.2)
[2018-02-02 07:09] LABS: CHLORIDE 112 MEQ/L (99-109); GFR ESTIMATE (CALCULATED) 25 mL/min/; GLUCOSE 337 mg/dL (70-99); POTASSIUM 5.1 MEQ/L (3.7-5.4); SODIUM 139 MEQ/L (136-147); UREA NITROGEN (BUN) 31 mg/dL (9-23)
[2018-02-02 08:06] LABS: INTACT PARATHYROID HORMONE 110 pg/mL (10-69)
[2018-02-02 08:09] VITALS: BP 148/65
[2018-02-02 11:27] VITALS: BP 145/65
[2018-02-02 11:37] LABS: IRON 119 MCG/DL (35-150); TRANSFERRIN (TIBC) 233.3 mg/dL (215-380); TRANSFERRIN SATUR. 51 % (20-55)
[2018-02-02 11:50] LABS: FERRITIN 83 NG/ML (10-291)
[2018-02-02 15:29] VITALS: BP 147/67
[2018-02-02 19:54] VITALS: BP 144/65
[2018-02-03 00:21] VITALS: BP 152/70
[2018-02-03 04:02] VITALS: BP 154/70
[2018-02-03 06:04] LABS: BASOPHIL (%) 0.2 % (0-1); EOSINOPHIL (%) 0.1 % (0-5); HEMATOCRIT 30.8 % (36.0-46.0); HEMOGLOBIN 9.9 G/DL (11.9-15.5); IMMATURE GRANULOCYTE (%) 1.6 % (0.0-0.7); LYMPHOCYTE (%) 6.2 % (15-42); LYMPHOCYTE COUNT 1.1 K/uL (1.0-2.8); MCH 30.7 PG (29.0-34.0); MCHC 32.1 G/DL (30.0-36.0); MCV 95.4 FL (83-99); MONOCYTE (%) 3.1 % (3-12); MONOCYTE COUNT 0.6 K/uL (0-0.8); NEUTROPHIL (%) 88.8 % (45-76); NEUTROPHIL COUNT 15.8 K/uL (1.8-6.4); PLATELET COUNT 191 K/uL (156-360); RBC DIS.WIDTH-CV 13.4 % (11.8-14.6); RBC DIS.WIDTH-SD 46.5 % (39-53); RED BLOOD COUNT 3.23 M/uL (3.80-5.20); WHITE BLOOD COUNT 17.8 K/uL (4.1-10.2)
[2018-02-03 06:24] LABS: CHLORIDE 111 MEQ/L (99-109); CREATININE 1.9 MG/DL (0.6-1.3); GFR ESTIMATE (CALCULATED) 27 mL/min/; GLUCOSE 265 mg/dL (70-99); POTASSIUM 5.3 MEQ/L (3.7-5.4); SODIUM 137 MEQ/L (136-147); UREA NITROGEN (BUN) 39 mg/dL (9-23)
[2018-02-03 07:57] VITALS: BP 137/65
[2018-02-03 08:13] LABS: FOLIC ACID (FOLATE) 9.1 NG/ML (5.0-22.0)
[2018-02-03] MEDS ORDERED: PREDNISONE10 MG PO (10:11)
[2018-02-03] MEDS ORDERED: AMLODIPINE BESYL5 MG PO (10:12)
[2018-02-03] MEDS ORDERED: FAMOTIDINE20 MG PO (10:12)
[2018-02-03] MEDS ORDERED: GABAPENTIN300 MG PO (10:13)
== END 2018-02-03 13:45 | disposition home health service (06) | DRG 189 ==
LOC: EME 13:03 → 3EAST 17:44 → EDOF 17:44 → ENRESERV 17:48 → 3EAST 20:54
PROVIDERS: Emergency Medicine; Hospitalist; Internal Medicine; Physician Assistant
DX: J96.01 Acute respiratory failure with hypoxia (principal); J18.0 Bronchopneumonia, unspecified organism; Y95 Nosocomial condition; N17.9 Acute kidney failure, unspecified; E86.1 Hypovolemia; E87.2 Acidosis; E11.649 Type 2 diabetes mellitus with hypoglycemia without coma; I13.0 Hypertensive heart and chronic kidney disease with heart failure and stage 1 through stage 4 chronic kidney disease, or unspecified chronic kidney disease; I50.9 Heart failure, unspecified; E11.21 Type 2 diabetes mellitus with diabetic nephropathy; E11.22 Type 2 diabetes mellitus with diabetic chronic kidney disease; N18.4 Chronic kidney disease, stage 4 (severe); D63.1 Anemia in chronic kidney disease; N25.81 Secondary hyperparathyroidism of renal origin; D50.9 Iron deficiency anemia, unspecified; E11.42 Type 2 diabetes mellitus with diabetic polyneuropathy; E03.9 Hypothyroidism, unspecified; E55.9 Vitamin D deficiency, unspecified; E78.5 Hyperlipidemia, unspecified; F41.9 Anxiety disorder, unspecified; G89.29 Other chronic pain; I25.10 Atherosclerotic heart disease of native coronary artery without angina pectoris; I48.0 Paroxysmal atrial fibrillation; F32.9 Major depressive disorder, single episode, unspecified; Z79.4 Long term (current) use of insulin; Z86.73 Personal history of transient ischemic attack (TIA), and cerebral infarction without residual deficits; Z98.1 Arthrodesis status; Z85.79 Personal history of other malignant neoplasms of lymphoid, hematopoietic and related tissues; Z90.49 Acquired absence of other specified parts of digestive tract
CPT/HCPCS: 36600; 71045; 71250; 76770; 80048; 80048 91; 80053; 80202; 81003; 82436; 82570; 82607; 82728; 82746; 82803; 82948; 83540; 83605; 83970; 84156; 84300; 84466; 85025; 85027; 85610; 85730; 87040; 87081; 87449; 89190; 93005; 94640; 94640 76; 94799; 97530 GO; 97530 GP; 99202; 99281; 99285; A6214; C1755; J0692; J1644; J1815; J1956; J2930; J3370; J7030; J7040; J7512

== ENCOUNTER 2018-03-15 15:42 | Inpatient (IN) | payer OTHER ==
[~2018-03-15] VITALS: Ht 167.6 cm; Wt 81.9 kg
[~2018-03-15 15:42] MED LIST changes: +AMLODIPINE BESYL5 MG PO; +FAMOTIDINE20 MG PO; +KLONOPIN0.5 M1 PO; +MUCINEX COLD-F177 ML PO
[2018-03-15 16:38] LABS: BASOPHIL (%) 0.3 % (0-1); BASOPHIL COUNT 0.1 K/uL (0-0.1); EOSINOPHIL (%) 0 % (0-5); IMMATURE GRANULOCYTE (%) 1.2 % (0.0-0.7); LYMPHOCYTE (%) 5.2 % (15-42); LYMPHOCYTE COUNT 1.6 K/uL (1.0-2.8); MONOCYTE (%) 4.4 % (3-12); MONOCYTE COUNT 1.4 K/uL (0-0.8); NEUTROPHIL (%) 88.9 % (45-76); NEUTROPHIL COUNT 27.6 K/uL (1.8-6.4); PLATELET COUNT 159 K/uL (156-360)
[2018-03-15 16:46] LABS: ALBUMIN 3.1 g/dL (3.2-4.8); CHLORIDE 109 mEq/L (99-109); POTASSIUM 5.2 mEq/L (3.7-5.4); SODIUM 141 mEq/L (136-147)
[2018-03-15 16:49] LABS: GLUCOSE 85 mg/dL (70-99); TOTAL PROTEIN 5.2 g/dL (6.4-8.3)
[2018-03-15 16:51] LABS: TOTAL BILIRUBIN 0.7 mg/dL (0.0-1.0)
[2018-03-15 16:52] LABS: ALKALINE PHOSPHATASE 28 IU/L (3-129); GFR ESTIMATE (CALCULATED) 25 mL/min/; HEMATOCRIT 37.5 % (36.0-46.0); MCH 30.8 PG (29.0-34.0); MCV 96.4 FL (83-99); RBC DIS.WIDTH-CV 13.7 % (11.8-14.6); RBC DIS.WIDTH-SD 47.8 % (39-53); RED BLOOD COUNT 3.89 M/uL (3.80-5.20)
[2018-03-15 16:53] LABS: UREA NITROGEN (BUN) 38 mg/dL (9-23)
[2018-03-15 16:54] LABS: AST (GOT) 25 IU/L (2-34)
[2018-03-15 16:55] LABS: ALT (GPT) 33 IU/L (3-49); CREATINE KINASE 28 IU/L (1-294); TOTAL CK 28 IU/L (1-294)
[2018-03-15 16:59] LABS: TROP-I INTERPRETATION NEGATIVE; TROPONIN-I 0.04 ng/mL (0.0-0.30)
[2018-03-15 17:01] LABS: CK-MB 1.8 ng/mL (0.0-4.9); CKMB RELATIVE INDEX 6.4 (0.0-3.9)
[2018-03-15 23:34] VITALS: BP 121/60
[2018-03-15 23:57] LABS: TROP-I INTERPRETATION NEGATIVE; TROPONIN-I 0.05 ng/mL (0.0-0.30)
[2018-03-16 03:04] VITALS: BP 117/60
[2018-03-16 05:39] LABS: TROP-I INTERPRETATION NEGATIVE; TROPONIN-I 0.03 ng/mL (0.0-0.30)
[2018-03-16 05:41] LABS: BASOPHIL (%) 0.1 % (0-1); EOSINOPHIL (%) 0 % (0-5); HEMATOCRIT 31.4 % (36.0-46.0); IMMATURE GRANULOCYTE (%) 0.7 % (0.0-0.7); LYMPHOCYTE (%) 9.8 % (15-42); LYMPHOCYTE COUNT 2.5 K/uL (1.0-2.8); MCHC 31.2 G/DL (30.0-36.0); MONOCYTE (%) 2.6 % (3-12); MONOCYTE COUNT 0.7 K/uL (0-0.8); NEUTROPHIL (%) 86.8 % (45-76); NEUTROPHIL COUNT 22.4 K/uL (1.8-6.4); PLATELET COUNT 140 K/uL (156-360); RBC DIS.WIDTH-CV 13.7 % (11.8-14.6); RBC DIS.WIDTH-SD 48.3 % (39-53); RED BLOOD COUNT 3.27 M/uL (3.80-5.20); WHITE BLOOD COUNT 25.8 K/uL (4.1-10.2)
[2018-03-16 05:43] LABS: HEMOGLOBIN 9.8 G/DL (11.9-15.5)
[2018-03-16 05:49] LABS: CHLORIDE 108 MEQ/L (99-109); CREATININE 1.6 MG/DL (0.6-1.3); GFR ESTIMATE (CALCULATED) 33 mL/min/; POTASSIUM 4.4 MEQ/L (3.7-5.4); SODIUM 142 MEQ/L (136-147); UREA NITROGEN (BUN) 36 mg/dL (9-23)
[2018-03-16 06:10] LABS: GLUCOSE 55 mg/dL (70-99)
[2018-03-16 07:49] VITALS: BP 108/59
[2018-03-16 12:37] VITALS: BP 146/67
[2018-03-16 14:58] LABS: APPEARANCE CLEAR ((CLEAR)); BILIRUBIN NEGATIVE; BLOOD NEGATIVE; COLOR YELLOW ((YELLOW)); GLUCOSE (STRIP) >=500; KETONES NEGATIVE; LEUKOCYTES TRACE; NITRITE NEGATIVE; PROTEIN (STRIP) NEGATIVE; SPECIFIC GRAVITY 1.012 (1.000-1.030); UROBILINOGEN 0.2 MG/DL (0.2-1.0)
[2018-03-16 15:00] LABS: BACTERIA RARE /HPF; EPITHELIAL CELLS RARE /HPF; MUCUS TRACE /LPF; RED BLOOD CELLS 0-5 /HPF (0-5)
[2018-03-16 17:40] VITALS: BP 157/67
[2018-03-16 20:17] VITALS: BP 142/61
[2018-03-16] MEDS ORDERED: AMLODIPINE BESYL5 MG PO (21:20)
[2018-03-16] MEDS ORDERED: CALCITRIOL0.25 MCG PO (21:26)
[2018-03-16] MEDS ORDERED: NEURONTIN300 MG PO (21:27)
[2018-03-16] MEDS ORDERED: FAMOTIDINE20 MG PO (21:27)
[2018-03-16] MEDS ORDERED: GLIMEPIRIDE4 MG PO (21:28)
[2018-03-16] MEDS ORDERED: CLONAZEPAM0.5 MG PO (21:28)
[2018-03-16] MEDS ORDERED: LEVOTHYROXINE50 MCG PO (21:29)
[2018-03-16] MEDS ORDERED: PENTOXIFYLLINE400 MG PO (21:29)
[2018-03-16] MEDS ORDERED: VITAMIN D32000 UNI1 PO (21:30)
[2018-03-16] MEDS ORDERED: PRAVASTATIN SOD40 MG PO (21:30)
[2018-03-16] MEDS ORDERED: PERCOCET 5/31 TABLET PO ×2 (21:36→21:37)
[2018-03-16] MEDS ORDERED: NITROGLYCERIN0.4 MG SL (21:37)
[2018-03-16] MEDS ORDERED: MUCINEX D ER T1 EACH PO (21:38)
[2018-03-16] MEDS ORDERED: DUONEB 2.5-0.5 M3 ML AEROSOL (21:40)
[2018-03-16] MEDS ORDERED: LEVEMIR FL100 UNIT/1 SC (21:41)
[2018-03-16] MEDS ORDERED: TRULICITY0.75 MG/0. SC (21:42)
[2018-03-16 23:28] VITALS: BP 150/67
[2018-03-17 04:50] VITALS: BP 121/60
[2018-03-17 05:25] LABS: HEMATOCRIT 29.7 % (36.0-46.0); HEMOGLOBIN 9.4 G/DL (11.9-15.5); MCH 30.3 PG (29.0-34.0); MCHC 31.6 G/DL (30.0-36.0); MCV 95.8 FL (83-99); PLATELET COUNT 115 K/uL (156-360); RBC DIS.WIDTH-CV 13.7 % (11.8-14.6); RBC DIS.WIDTH-SD 48.3 % (39-53); WHITE BLOOD COUNT 15.2 K/uL (4.1-10.2)
[2018-03-17 06:21] LABS: CHLORIDE 107 MEQ/L (99-109); CREATININE 1.3 MG/DL (0.6-1.3); GFR ESTIMATE (CALCULATED) 42 mL/min/; GLUCOSE 94 mg/dL (70-99); POTASSIUM 3.8 MEQ/L (3.7-5.4); SODIUM 140 MEQ/L (136-147); UREA NITROGEN (BUN) 25 mg/dL (9-23)
[2018-03-17 07:57] VITALS: BP 144/70
[2018-03-17 12:19] VITALS: BP 158/70
[2018-03-17 16:22] VITALS: BP 135/65
[2018-03-17 18:51] VITALS: BP 131/89
[2018-03-17 23:00] VITALS: BP 121/63
[2018-03-18 04:10] VITALS: BP 139/71
[2018-03-18 05:22] LABS: HEMATOCRIT 30.8 % (36.0-46.0); HEMOGLOBIN 9.8 G/DL (11.9-15.5); MCH 30.5 PG (29.0-34.0); MCHC 31.8 G/DL (30.0-36.0); PLATELET COUNT 115 K/uL (156-360); RBC DIS.WIDTH-CV 13.5 % (11.8-14.6); RBC DIS.WIDTH-SD 47.4 % (39-53); RED BLOOD COUNT 3.21 M/uL (3.80-5.20); WHITE BLOOD COUNT 9.3 K/uL (4.1-10.2)
[2018-03-18 06:14] LABS: CHLORIDE 107 MEQ/L (99-109); CREATININE 1.5 MG/DL (0.6-1.3); GFR ESTIMATE (CALCULATED) 35 mL/min/; SODIUM 138 MEQ/L (136-147); UREA NITROGEN (BUN) 20 mg/dL (9-23)
[2018-03-18 06:16] LABS: GLUCOSE 177 mg/dL (70-99)
[2018-03-18 07:05] VITALS: BP 154/80
[2018-03-18 11:24] VITALS: BP 148/68
[2018-03-18] MEDS ORDERED: BENZONATATE200 MG PO (12:40)
[2018-03-18] MEDS ORDERED: PREDNISONE10 MG PO (12:40)
[2018-03-18 15:45] VITALS: BP 131/57
[2018-03-18 19:42] VITALS: BP 136/71
[2018-03-18 23:33] VITALS: BP 134/67
[2018-03-19 03:16] VITALS: BP 138/70
[2018-03-19 08:56] VITALS: BP 143/71
[2018-03-19 11:49] VITALS: BP 147/72
[2018-03-19 16:34] VITALS: BP 151/72
[2018-03-19 19:20] VITALS: BP 126/83
[2018-03-19 23:42] VITALS: BP 120/55
[2018-03-20] VITALS (7 sets, daily range): BP systolic 122–158; BP diastolic 62–76
[2018-03-21 03:52] VITALS: BP 160/77
[2018-03-21 07:44] VITALS: BP 163/72
[2018-03-21 08:54] LABS: HEMATOCRIT 36.4 % (36.0-46.0); HEMOGLOBIN 11.4 G/DL (11.9-15.5); MCH 30.4 PG (29.0-34.0); MCHC 31.3 G/DL (30.0-36.0); MCV 97.1 FL (83-99); RBC DIS.WIDTH-CV 13.4 % (11.8-14.6); RBC DIS.WIDTH-SD 47.9 % (39-53); RED BLOOD COUNT 3.75 M/uL (3.80-5.20)
[2018-03-21 08:57] LABS: PLATELET COUNT 168 K/uL (156-360)
[2018-03-21 09:21] LABS: ALBUMIN 3.2 G/DL (3.2-4.8); ALKALINE PHOSPHATASE 30 IU/L (3-129); ALT (GPT) 14 IU/L (3-49); AST (GOT) 12 IU/L (2-34); CHLORIDE 106 MEQ/L (99-109); CREATININE 1.7 MG/DL (0.6-1.3); GFR ESTIMATE (CALCULATED) 31 mL/min/; GLUCOSE 136 mg/dL (70-99); POTASSIUM 3.8 MEQ/L (3.7-5.4); SODIUM 143 MEQ/L (136-147); TOTAL BILIRUBIN 0.4 MG/DL (0.0-1.0); TOTAL PROTEIN 5.7 G/DL (6.4-8.3); UREA NITROGEN (BUN) 16 mg/dL (9-23)
[2018-03-21 11:39] VITALS: BP 160/69
[2018-03-21 16:36] VITALS: BP 125/64
[2018-03-21 19:10] VITALS: BP 125/60
[2018-03-21 23:16] VITALS: BP 141/66
[2018-03-22 03:30] VITALS: BP 131/64
[2018-03-22 06:02] LABS: BASOPHIL (%) 0.3 % (0-1); EOSINOPHIL (%) 3.4 % (0-5); EOSINOPHIL COUNT 0.3 K/uL (0-0.3); HEMATOCRIT 32.1 % (36.0-46.0); HEMOGLOBIN 9.9 G/DL (11.9-15.5); IMMATURE GRANULOCYTE (%) 1.1 % (0.0-0.7); LYMPHOCYTE (%) 28.1 % (15-42); LYMPHOCYTE COUNT 2.1 K/uL (1.0-2.8); MCHC 30.8 G/DL (30.0-36.0); MCV 97.3 FL (83-99); MONOCYTE (%) 8.7 % (3-12); MONOCYTE COUNT 0.7 K/uL (0-0.8); NEUTROPHIL (%) 58.4 % (45-76); NEUTROPHIL COUNT 4.4 K/uL (1.8-6.4); PLATELET COUNT 187 K/uL (156-360); RBC DIS.WIDTH-CV 13.7 % (11.8-14.6); WHITE BLOOD COUNT 7.5 K/uL (4.1-10.2)
[2018-03-22 06:28] LABS: CHLORIDE 109 MEQ/L (99-109); CREATININE 1.8 MG/DL (0.6-1.3); GFR ESTIMATE (CALCULATED) 29 mL/min/; GLUCOSE 151 mg/dL (70-99); POTASSIUM 3.9 MEQ/L (3.7-5.4); SODIUM 144 MEQ/L (136-147); UREA NITROGEN (BUN) 17 mg/dL (9-23)
[2018-03-22 07:29] VITALS: BP 139/70
[2018-03-22 11:22] LABS: HEMOGLOBIN A1c (GLYCOHEMOGLOB) 8.7 % (Below 5.7)
[2018-03-22 11:47] VITALS: BP 131/66
[2018-03-22] MEDS ORDERED: AMOX TR-K CLV1 EAC3 PO (15:32)
[2018-03-22] MEDS ORDERED: DOCUSATE SODIU100 MG PO (15:33)
[2018-03-22 15:34] VITALS: BP 130/67
[2018-03-22] MEDS ORDERED: PERCOCET 5/31 TABLET PO (15:35)
== END 2018-03-22 18:09 | DRG 871 ==
LOC: EME 15:42 → 4EAST 18:58 → EDOF 18:58 → ENRESERV 19:01 → 4EAST 22:18 → ENRESERV 03-20 19:22 → 2EAST 03-20 19:55
PROVIDERS: Emergency Medicine; Family Medicine; Hospitalist; Internal Medicine
DX: A41.9 Sepsis, unspecified organism (principal); J69.0 Pneumonitis due to inhalation of food and vomit; J96.01 Acute respiratory failure with hypoxia; N17.9 Acute kidney failure, unspecified; E86.0 Dehydration; G93.41 Metabolic encephalopathy; E11.649 Type 2 diabetes mellitus with hypoglycemia without coma; I13.0 Hypertensive heart and chronic kidney disease with heart failure and stage 1 through stage 4 chronic kidney disease, or unspecified chronic kidney disease; I50.9 Heart failure, unspecified; E11.22 Type 2 diabetes mellitus with diabetic chronic kidney disease; N18.3 Chronic kidney disease, stage 3 (moderate); D64.9 Anemia, unspecified; R13.10 Dysphagia, unspecified; I48.0 Paroxysmal atrial fibrillation; E78.5 Hyperlipidemia, unspecified; F32.9 Major depressive disorder, single episode, unspecified; I25.10 Atherosclerotic heart disease of native coronary artery without angina pectoris; E03.9 Hypothyroidism, unspecified; Z98.1 Arthrodesis status; Z85.820 Personal history of malignant melanoma of skin; Z79.4 Long term (current) use of insulin; Z86.73 Personal history of transient ischemic attack (TIA), and cerebral infarction without residual deficits; Z22.8 Carrier of other infectious diseases
CPT/HCPCS: 70450; 71045; 71046; 74176; 74230; 80048; 80053; 81003; 82550; 82553; 82948; 83036; 83605; 84443; 84484; 85025; 85027; 87040; 87070; 87106; 87205; 87449; 92610 GN; 92611 GN; 93005; 94799; 97530 GP; 99281; 99285; J0295; J0456; J1644; J1815; J2543; J3370; J7030; J7042; J7050